=== PATIENT | female | born 1960 | race Caucasian/White ===

== ENCOUNTER 2016-07-27 15:38 | Emergency (ER) | payer OTHER ==
--- NOTE | 2016-07-27 16:04 | EDM.PDOC ---
[id number] chest pain Time Seen by Provider: 07/27/16 15:47 Source of Information: Reports: Patient, Family History Limitations: Reports: No limitations - History of Present Illness INITIAL COMMENTS - FREE TEXT/NARRATIVE: Patient reports chest and jaw pain the started around 2 pm today. She was in the middle of doing some computer work. She states that this was frustrating her. She says it lasted for 10 minutes approximately. She denies history of stroke, [place]. Has smoked 1/2 ppd since 18 for approximate pack history of 19. Has history of HTN, high cholesterol. Denies diabetes. Drinks 4-5 days per week, beer is drink of choice, has 2-3 when she drinks. Blood pressure elevated. No numbness, SOB, no LOC, no nausea or diaphoresis. Symptom Onset Date: 07/27/16 Symptom Onset Time: 14:00 Timing/Duration: Reports: Sudden onset Severity: mild Location, General: Reports: chest Improves with: Reports: None Associated Symptoms (General): Reports: chest pain - Related Data Allergies/ADRs: Allergies Allergy/AdvReac Type Severity Reaction Status Date / Time oxycodone [From OxyContin] Allergy Itching Verified 07/27/16 15:59 Home Meds: Home Meds Esomeprazole Magnesium [Nexium] 40 mg PO DAILY 02/27/16 [History] amLODIPine Besylate/Benazepril [Amlodipine-Benazepril 5-10 MG] 1 each PO DAILY 02/27/16 [History] atorvaSTATin [Lipitor] 10 mg PO BEDTIME 02/27/16 [History] Past Medical History Cardiovascular History: Reports: High cholesterol, Hypertension Social & Family History - Tobacco Use Smoking Status *Q: Current Every Day Smoker Years of Tobacco use: 40 Packs/Tins Daily: 0.5 ED ROS GENERAL - Review of Systems Review Of Systems: See Below Constitutional: Reports: no symptoms HEENT: Reports: No symptoms Respiratory: Reports: No Symptoms Cardiovascular: Reports: Chest pain (chest and jaw pain) Endocrine: Reports: no symptoms GI/Abdominal: Reports: No symptoms : Reports: no symptoms Musculoskeletal: Reports: no symptoms Skin: Reports: no symptoms Neurological: Reports: No Symptoms Psychiatric: Reports: No symptoms Hematologic/Lymphatic: Reports: no symptoms Immunologic: Reports: no symptoms ED EXAM, GENERAL - Physical Exam Exam: See Below Exam Limited By: No limitations General Appearance: alert, WD/WN, no apparent distress Eye Exam: bilateral eye: EOMI, PERRL Ears: normal TMs Nose: normal inspection Throat/Mouth: Normal inspection, Normal oropharynx Head: atraumatic, normocephalic Neck: normal inspection, supple, non-tender, full range of motion Respiratory/Chest: no respiratory distress, lungs clear, normal breath sounds Cardiovascular: normal peripheral pulses, regular rate, rhythm, no edema, no gallop GI/Abdominal: normal bowel sounds, soft, non tender, no organomegaly Extremities: normal inspection, normal range of motion, non-tender, no pedal edema, normal capillary refill Neurological: alert, oriented, CN II-XII intact, normal cognition, normal gait, normal reflexes, no motor/sensory deficits Psychiatric: normal affect, other (patient does not want to be here and is irritated) Skin Exam: Warm, Dry, Intact, Other (has severe redness to cheeks, nose and forehead). No: Normal color Lymphatic: no adenopathy EKG INTERPRETATION EKG Date: 07/27/16 Time: 15:45 Rhythm: other (sinus tachy) Rate (beats/min): 100 [place]: normal P-wave: present QRS: normal ST-T: normal QT: normal Comparison: NA - no prior EKG Course - Vital Signs Last Recorded V/S: Last Vital Signs Temp 37.6 C 07/27/16 16:01 Pulse 88 07/27/16 17:54 Resp 16 07/27/16 16:01 BP 174/106 H 07/27/16 17:54 Pulse Ox 99 07/27/16 16:01 - Orders/Labs/Meds Orders: Active Orders 24 hr Category Date Time Status EKG 12 Lead [EKG Documentation Completion] [RC] ROUTINE Care 07/27/16 16:12 Active Chest 2V [CR] Stat Exams 07/27/16 16:04 Taken Labs: Laboratory Tests 07/27/16 07/27/16 07/27/16 Range/Units 16:10 16:10 16:10 WBC 5.5 (4.0-10.0) x10^3/uL RBC 4.16 (4.00-5.50) x10^6/uL Hgb 13.5 (12.0-16.0) g/dL Hct 39.5 (33.0-47.0) % MCV 95.0 H (78.0-93.0) fL MCH 32.5 H (26.0-32.0) pg MCHC 34.2 (32.0-36.0) g/dL RDW Coeff of Aretha 12.8 (10.0-15.0) % Plt Count 270 (130-400) x10^3/uL Neut % (Auto) 62.3 (50.0-80.0) % Lymph % (Auto) 25.5 (25.0-50.0) % [place] % (Auto) 10.0 (2.0-11.0) % Eos % (Auto) 1.5 (0.0-4.0) % Baso % (Auto) 0.7 (0.2-1.2) % PT 10.5 (10.0-12.8) SEC INR 0.9 L (2.0-3.5) Sodium 140 (136-145) mmol/L Potassium 3.2 L (3.5-5.1) mmol/L Chloride 102 (98-107) mmol/L Carbon Dioxide 26 (21-32) mmol/L BUN 12 (7-18) mg/dL Creatinine 0.8 (0.55-1.02) mg/dL Est Cr Clr Drug Dosing 79.21 mL/min Estimated GFR (MDRD) > 60 Glucose 89 (74-106) mg/dL Calcium 8.7 (8.5-10.1) mg/dL Corrected Calcium 9.02 (8.5-10.1) mg/dL Total Bilirubin 0.3 (0.2-1.0) mg/dL AST 31 (15-37) U/L ALT 44 (14-59) U/L Alkaline Phosphatase 56 (46-116) U/L Creatine Kinase 76 (26-192) U/L Creatine Kinase Index 1.2 (0.0-4.0) % CK-MB (CK-2) 0.9 (0.0-3.6) ng/mL Troponin I < 0.017 (<=0.056) ng/mL Total Protein 6.8 (6.4-8.2) g/dL Albumin 3.6 (3.4-5.0) g/dL Globulin 3.2 Albumin/Globulin Ratio 1.13 Meds: Medications Discontinued Medications Generic Name Dose Route Start Last Admin Trade Name Rigo PRN Reason Stop Dose Admin Aspirin 81 mg 07/27/16 16:29 07/27/16 16:37 Aspirin PO 07/27/16 16:30 81 mg ONETIME ONE Administration Hydrochlorothiazide 12.5 mg 07/27/16 16:46 07/27/16 17:02 Hydrochlorothiazide PO 07/27/16 16:47 12.5 mg ONETIME ONE Administration Metoprolol Tartrate 50 mg 07/27/16 16:52 07/27/16 17:02 Lopressor PO 07/27/16 16:53 50 mg ONETIME ONE Administration Nitroglycerin 0.4 mg 07/27/16 16:36 07/27/16 16:37 Nitrostat SL 07/27/16 16:37 0.4 mg ONETIME ONE Administration - Re-Assessments/Exams Free Text/Narrative Re-Assessment/Exam: 07/27/16 16:20 Labs drawn for cardiac enzymes, chest x-ray - all are negative for ACS Additional agents given for HTN - 0.4 mg SL nitro, 12.5 HCTZ, 50 mg Metoprolol S. All oral. Largely ineffective. Patient is extremely agitated and angry she is here. Very red in the face. States blood pressure normally runs under 140/90 and states it will go down when she is discharged. She is currently asymptomatic. Reminded to see her PCP for better blood pressure control. Advised to return if she has any signs or complications. Departure - Departure Time of Disposition: 17:35 Disposition: Home, Self-Care 01 Condition: good Clinical Impression: Hypertensive emergency without congestive heart failure Instructions: Nonspecific Chest Pain, [id number], Hypertension, [id number] , DASH Eating Plan Referrals: Celi Orona, DO [Primary Care Provider] - Forms: ED Department Discharge Additional Instructions: You need to follow up with your primary doctor regarding your blood pressure. It is too high and your numbers should be BELOW 140/90. If not you risk kidney damage, heart enlargement which can lead to reduced blood flow. I think some medication adjustments may be necessary. You should reduce the amount of alcohol you drink as this can increase your risk for heart attack. You can contact us with any questions or concerns at any time. If you experience additional symptoms again, please return for further evaluation. - Problem List & Annotations (1) Hypertensive emergency without congestive heart failure SNOMED Code(s): 047269243786421 Code(s): I16.1 - HYPERTENSIVE EMERGENCY Status: Acute Priority: Low - Problem List Review Problem List Initiated/Reviewed/Updated: Yes - My Orders Last 24 Hours: My Active Orders 07/27/16 16:04 Chest 2V [CR] Stat 07/27/16 16:12 EKG 12 Lead [EKG Documentation Completion] [RC] ROUTINE - Assessment/Plan Last 24 Hours: My Active Orders 07/27/16 16:04 Chest 2V [CR] Stat 07/27/16 16:12 EKG 12 Lead [EKG Documentation Completion] [RC] ROUTINE Assessment:: Hypertension emergency Chest pain Plan: You need to follow up with your primary doctor regarding your blood pressure. It is too high and your numbers should be BELOW 140/90. If not you risk kidney damage, heart enlargement which can lead to reduced blood flow. I think some medication adjustments may be necessary. You should reduce the amount of alcohol you drink as this can increase your risk for heart attack. You can contact us with any questions or concerns at any time. If you experience additional symptoms again, please return for further evaluation.
[2016-07-27] MEDS ORDERED: Aspirin 81 MG Tab.Chew PO ONE (16:29)
[2016-07-27] MEDS ORDERED: Nitroglycerin 0.4 MG/HR Transdermal Patch TRDERM ONE (16:32)
[2016-07-27] MEDS ORDERED: Nitroglycerin 0.4 MG Tab.SL SL ONE (16:36)
[2016-07-27] MEDS ORDERED: Hydrochlorothiazide 12.5 MG Cap PO ONE (16:46)
[2016-07-27] MEDS ORDERED: Metoprolol Tartrate 50 MG Tab PO ONE (16:52)
[2016-07-27 16:56] LABS: CHLORIDE,CL 102 mmol/L (98-107); SODIUM,NA 140 mmol/L (136-145)
[2016-07-27 17:54] VITALS: BP 174/106
== END 2016-07-27 17:35 | disposition home or self-care (01) ==
LOC: VM.ED 15:38
DX: I16.1 Hypertensive emergency (principal); Z79.899 Other long term (current) drug therapy; F17.210 Nicotine dependence, cigarettes, uncomplicated
CPT/HCPCS: 36415; 71020; 80053; 82550; 82553; 84484; 85025; 85610; 93005; 99285; A9270

== ENCOUNTER 2020-03-12 06:37 | Day surgery (SDC) | payer OTHER ==
[2020-03-12] MEDS ORDERED: Lactated Ringers 1,000 ML IV SCH (07:00)
[2020-03-12] MEDS ORDERED: Propofol 200 MG/20 ML SDV ONE ×4 (07:34→07:59)
[2020-03-12 08:19] VITALS: BP 129/81; PULSE 95
--- NOTE | 2020-03-12 10:24 | OR ---
PREOPERATIVE DIAGNOSIS: History of colon polyps. POSTOPERATIVE DIAGNOSIS: Colon polyps. PROCEDURE PERFORMED: Total flexible colonoscopy with biopsies. ANESTHESIA: MAC anesthesia. COMPLICATIONS: None apparent. BLOOD LOSS: Minimal. FINDINGS: 1. Cecal polyps x2, 3 mm/4 mm, hot snare. 2. Transverse colon polyp, 5 mm, hot snare. START TIME: 0738. CECUM TIME: 0744. STOP TIME: 0759. BOWEL PREP: [place] class 3. INDICATIONS FOR PROCEDURE: Ms. Tom is a 60-year-old female who is here for regular screening colonoscopy. She had a polyp removed 3 years ago, which was a tubular adenoma. At that time, she was recommended a 3-year followup. She denies any bloody or dark black stools. No change in bowel habits. Her grandmother had colorectal cancer in her 80s, but no other family history. DETAILS OF PROCEDURE: After informed consent was obtained, the patient was brought to the procedure room and placed in left lateral decubitus position. MAC anesthesia was induced by Anesthesia colleagues. The colonoscope equipped with an Endocuff device was introduced into the rectum and advanced all the way to the cecum. It was then slowly withdrawn. No pathology was identified except for what is mentioned in the above findings section. A retroflexed view was obtained and then the colonoscope was removed. The patient tolerated the procedure well and was awoken from MAC anesthesia by Anesthesia colleagues without incident. PATHOLOGY: A) Colon, cecum polyp Fragmented tubular adenoma(s) No high-grade dysplasia or malignancy identified B) Colon, transverse polyp Fragmented tubular adenoma(s) No high-grade dysplasia or malignancy identified Recommend repeat screening colonoscopy in 3 years. RKM: 03/12/2020 08:04:24 MODL: 03/12/2020 10:11:20 /[id number] MARCELLO
--- NOTE | 2020-03-22 08:12 | LETTER ---
03/19/2020 RE: DENA MARTINEZ : 1960 D[address] Martinez [address] [place] [id number] Dear Ms. Martinez: I am writing to inform you of the pathology results of your recent colonoscopy. You had 3 tubular adenomas. A tubular adenoma is a polyp which does not contain cancer, but can become cancer, which is why we removed them. You will need a repeat screening colonoscopy in 3 years.
== END 2020-03-12 09:00 | disposition home or self-care (01) ==
LOC: VM.SDS 06:37
PROVIDERS: ATTEND Student in an Organized Health Care Education/Training Program
DX: Z12.11 Encounter for screening for malignant neoplasm of colon (principal); D12.0 Benign neoplasm of cecum; D12.3 Benign neoplasm of transverse colon; F33.1 Major depressive disorder, recurrent, moderate; I10 Essential (primary) hypertension; K21.9 Gastro-esophageal reflux disease without esophagitis; K22.5 Diverticulum of esophagus, acquired; K70.0 Alcoholic fatty liver; F17.210 Nicotine dependence, cigarettes, uncomplicated; Z01.812 Encounter for preprocedural laboratory examination; Z20.828 Contact with and (suspected) exposure to other viral communicable diseases; Z79.899 Other long term (current) drug therapy; Z88.8 Allergy status to other drugs, medicaments and biological substances; Z98.890 Other specified postprocedural states
CPT/HCPCS: 00812; 45385; 87635; J2704; J7120; U0002

== ENCOUNTER 2022-11-27 18:36 | Emergency (ER) | payer OTHER ==
[2022-11-27] MEDS ORDERED: Diphtheria,Pertussis(Acell),Tetanus Vaccine 0.5 ML Syringe IM ONE (19:01)
[2022-11-27] MEDS ORDERED: traMADol 50 MG Tab PO ONE (19:46)
[2022-11-27] MEDS ORDERED: ceFAZolin 1 GM Vial IM ONE (20:34)
[2022-11-27] MEDS ORDERED: Take Home: traMADol 50 MG, 4 Tab Pack PO ONE (21:06)
[2022-11-28 01:07] VITALS: BP 136/77; PULSE 77
== END 2022-11-27 21:18 | disposition home or self-care (01) ==
LOC: VM.ED 18:36
DX: S51.852A Open bite of left forearm, initial encounter (principal); E78.00 Pure hypercholesterolemia, unspecified; I10 Essential (primary) hypertension; K21.9 Gastro-esophageal reflux disease without esophagitis; Z88.5 Allergy status to narcotic agent; Z88.8 Allergy status to other drugs, medicaments and biological substances; Z79.899 Other long term (current) drug therapy; Z23 Encounter for immunization; W54.0XXA Bitten by dog, initial encounter
CPT/HCPCS: 12054; 90471; 90715; 96372; 99283; 99283-25; A9270-GY; J0690

== ENCOUNTER 2022-12-13 19:04 | Emergency (ER) | payer OTHER ==
[2022-12-13 19:40] LABS: APPEARANCE,URINE SLIGHTLY CLOUDY (CLEAR); BILIRUBIN,URINE NEGATIVE (NEGATIVE); COLOR,URINE YELLOW (YELLOW); GLUCOSE,URINE NEGATIVE (NEGATIVE); KETONES,URINE NEGATIVE (NEGATIVE); LEUKOCYTE ESTERASE,URINE MODERATE (NEGATIVE); NITRITE,URINE NEGATIVE (NEGATIVE); OCCULT BLOOD,URINE LARGE (NEGATIVE); PH,URINE 5.5 (5.0-8.0); PROTEIN,URINE TRACE mg/dL (NEGATIVE); UROBILINOGEN,URINE 0.2 EU/dL (0.2)
[2022-12-13 19:47] LABS: BACTERIA,URINE OCCASIONAL /HPF (NOT SEEN); MUCUS,URINE OCCASIONAL /LPF (NOT SEEN); RBC,URINE 20-30 /HPF (NOT SEEN); SQUAMOUS EPITHELIAL CELLS,UR FEW /HPF (NOT SEEN); WBC,URINE 20-30 /HPF (NOT SEEN)
[2022-12-13] MEDS ORDERED: Take Home: Sulfamethoxazole/Trimethoprim 800-160 MG Tab, 6 Tab Pack PO ONE (19:59)
[2022-12-13 20:25] VITALS: BP 133/87; PULSE 82
== END 2022-12-13 20:16 | disposition home or self-care (01) ==
LOC: VM.ED 19:04
DX: N39.0 Urinary tract infection, site not specified (principal); E78.00 Pure hypercholesterolemia, unspecified; I10 Essential (primary) hypertension; Z88.6 Allergy status to analgesic agent; Z88.5 Allergy status to narcotic agent; Z79.899 Other long term (current) drug therapy
CPT/HCPCS: 81001; 87086; 87088; 87186; 99284; A9270-GY